=== PATIENT | female | born 1990 | race Caucasian/White ===

== ENCOUNTER 2017-06-25 04:43 | Observation (INO) ==
[2017-06-25 06:02] LABS: INR 0.99 INR (0.90-1.10); Partial Thrombolplastin Time 30.8 Seconds (24-32); Prothrombin Time (Patient) 9.9 Seconds (9.0-11.0)
[2017-06-25 06:08] LABS: Hematocrit 35.3 % (37.0-47.0); Hemoglobin 11.1 gm/dL (12.5-16.0); Mean Cell Volume 86.1 fl (78-100); Mean Corpuscular Hemoglobin 27.1 pg (27-31); Mean Corpuscular Hgb Conc 31.4 g/dl (32-36); Mean Platelet Volume 10.2 fl (6.0-9.5); Neutrophil # 8.4 K/mm3 (1.3-6.0); Neutrophil % 67.8 % (42-75.0); Platelet Count 267 K/mm3 (150-450); Red Cell Distribution Width 14.5 % (11.5-14.0); White Blood Count 12.4 K/mm3 (4.0-10.5)
[2017-06-25] MEDS ORDERED: RINGER'S SOLUTION,LACTATED 1,000 ML IV PRN ×2 (07:09→08:46)
[2017-06-25] MEDS ORDERED: ACETAMINOPHEN 500 MG TABLET PO ONE (08:02)
== END 2017-06-25 10:40 | disposition short-term general hospital (02) ==
LOC: OBCLINIC 04:43 → OB 10:33
PROVIDERS: ADMIT Obstetrics & Gynecology Gynecologic Oncology; ATTEND Obstetrics & Gynecology Gynecologic Oncology
DX: O46.8X3 Other antepartum hemorrhage, third trimester; Z87.891 Personal history of nicotine dependence; O60.03 Preterm labor without delivery, third trimester
CPT/HCPCS: 36415; 59025; 76815; 85025; 85384; 85610; 85730; 96360; G0378